=== PATIENT | female | born 1970 | race Caucasian/White ===

== ENCOUNTER 2018-01-20 14:39 | Inpatient (IN) | payer BC ==
[~2018-01-20] VITALS: Ht 160 cm; Wt 69.7 kg
[2018-01-20] MEDS ORDERED: TRAZ-219 PO (14:45)
[2018-01-20] MEDS ORDERED: FLUO-191 PO (14:45)
[2018-01-20] MEDS ORDERED: BUPR100T5 PO (14:45)
[2018-01-20] MEDS ORDERED: MetroNIDAZOLE 500 MG/NACL 100 ML IV ONE (19:00)
[2018-01-20] MEDS ORDERED: MORPHINE SULFATE 2 MG/ML SYRINGE IVP ONE (19:00)
[2018-01-20] MEDS ORDERED: KETOROLAC TROMETHAMINE 30 MG/ML VIAL IVP ONE (19:00)
[2018-01-20] MEDS ORDERED: CeFAZolin 1 GM/DEXTROSE 50 ML IV ONE (19:00)
[2018-01-20] MEDS ORDERED: ONDANSETRON HCL 4 MG/2 ML VIAL IVP ONE ×2 (19:00→22:15)
[2018-01-20 19:22] LABS: BASOPHILS % (AUTO) 0.2 % (0.0-2.0); EOSINOPHILS % (AUTO) 1.1 % (1.0-6.0); HEMATOCRIT 36.2 % (36-46); LYMPHOCYTES # (AUTO) 2.3 K/uL (1.0-4.8); LYMPHOCYTES % (AUTO) 20.9 % (22.0-44.0); MEAN CORPUSCULAR HEMOGLOBIN 27.9 pg (26.0-34.0); MEAN CORPUSCULAR HGB CONC 33.1 G/dL (31.0-37.0); MEAN CORPUSCULAR VOLUME 84 fL (80-100); MONOCYTES # (AUTO) 0.5 K/uL (0.1-1.0); MONOCYTES % (AUTO) 4.5 % (2.0-9.0); NEUTROPHILS # (AUTO) 8.2 K/uL (1.8-7.7); NEUTROPHILS % (AUTO) 73.3 % (40.0-70.0); PLATELET COUNT (AUTO) 381 K/uL (150-450); RED CELL DISTRIBUTION WIDTH 15.6 % (11.5-14.5)
[2018-01-20 19:33] LABS: ANION GAP 8 mmol/L (8-16); CARBON DIOXIDE 27 mmol/L (22-29); CHLORIDE 102 mmol/L (98-107); CREATININE 0.76 mg/dL (0.60-1.30); GLOMERULAR FILTR. RATE CALC > 60 mL/min (>60); GLUCOSE,RANDOM 87 mg/dL (70-110); POTASSIUM 3.3 mmol/L (3.5-5.1); SODIUM SERUM 137 mmol/L (136-145); UREA NITROGEN, BLOOD 8 mg/dL (7-18)
[2018-01-20 19:40] LABS: ALANINE AMINOTRANSFERASE 20 U/L (12-78); ALBUMIN 3.8 g/dL (3.4-5.0); ALKALINE PHOSPHATASE 105 U/L (46-116); ASPARTATE AMINOTRANSFERASE 21 U/L (15-37); BILIRUBIN,TOTAL 0.4 mg/dL (0.1-1.0); TOTAL PROTEIN, SERUM 8.3 g/dL (6.4-8.2)
[2018-01-20 19:43] LABS: LACTIC ACID 0.5 mmol/L (0.4-2.0)
[2018-01-20] MEDS ORDERED: SODIUM CHLORIDE 0.9% 100 ML ONE (20:29)
[2018-01-20] MEDS ORDERED: IOVERSOL 320 MG/ML 100 ML VIAL ONE (20:29)
[2018-01-20] MEDS ORDERED: MethylPREDNISolone SOD SUCC 125 MG/2 ML VIAL IVP ONE (22:15)
[2018-01-20] MEDS ORDERED: ACETAMINOPHEN 325 MG TABLET PO PRN (22:15)
[2018-01-20] MEDS ORDERED: 0.9% SODIUM CHLORIDE 10 ML SYRINGE IVP PRN (22:15)
[2018-01-20] MEDS ORDERED: ONDANSETRON HCL 4 MG/2 ML VIAL IVP PRN ×2 (22:15→23:00)
[2018-01-20] MEDS ORDERED: POTASSIUM CHLORIDE 20 MEQ ER TABLET PO ONE (22:15)
[2018-01-20] MEDS ORDERED: MORPHINE SULFATE 4 MG/ML SYRINGE IVP ONE (22:15)
[2018-01-20] MEDS ORDERED: BISACODYL 10 MG RECTAL RECTAL SUPPOSITORY PR PRN (23:00)
[2018-01-20] MEDS ORDERED: *CLINICAL-LEVOFLOXACIN IVPB DOSING CLINICAL ONE (23:00)
[2018-01-20] MEDS ORDERED: ZOLPIDEM TARTRATE 5 MG TABLET PO PRN (23:00)
[2018-01-20] MEDS ORDERED: MAGNESIUM HYDROXIDE SUSPENSION 30 ML UDCUP PO PRN (23:00)
[2018-01-20] MEDS ORDERED: SODIUM CHLORIDE 0.9% 250 ML IV ONE (23:17)
[2018-01-20 23:21] VITALS: BP 155/79
[2018-01-20] MEDS: HEPARIN SODIUM,PORCINE 5,000 UNITS/ML VIAL SQ SCH (23:49)
[2018-01-20] MEDS: CLINDAMYCIN 600 MG/D5% WATER 50 ML IV SCH (23:49)
[2018-01-21] MEDS: LEVOFLOXACIN 500 MG/D5% WATER 100 ML IV SCH (02:02)
[2018-01-21 03:25] VITALS: BP 128/74
[2018-01-21] MEDS: CLINDAMYCIN 600 MG/D5% WATER 50 ML IV SCH ×4 (05:39→23:04)
[2018-01-21 06:15] LABS: BASOPHILS % (AUTO) 0.1 % (0.0-2.0); EOSINOPHILS % (AUTO) 0 % (1.0-6.0); HEMATOCRIT 34.6 % (36-46); HEMOGLOBIN 11.7 g/dL (12.0-16.0); LYMPHOCYTES # (AUTO) 0.6 K/uL (1.0-4.8); LYMPHOCYTES % (AUTO) 7.5 % (22.0-44.0); MEAN CORPUSCULAR HEMOGLOBIN 28.1 pg (26.0-34.0); MEAN CORPUSCULAR HGB CONC 33.8 G/dL (31.0-37.0); MEAN CORPUSCULAR VOLUME 83 fL (80-100); MONOCYTES # (AUTO) 0.1 K/uL (0.1-1.0); MONOCYTES % (AUTO) 0.7 % (2.0-9.0); NEUTROPHILS # (AUTO) 7.2 K/uL (1.8-7.7); PLATELET COUNT (AUTO) 357 K/uL (150-450); RED BLOOD CELL COUNT(AUTO) 4.16 MIL/uL (4.00-5.20); RED CELL DISTRIBUTION WIDTH 15.6 % (11.5-14.5)
[2018-01-21 06:26] LABS: ANION GAP 7 mmol/L (8-16); CALCIUM, TOTAL 8.9 mg/dL (8.8-10.5); CARBON DIOXIDE 26 mmol/L (22-29); CHLORIDE 102 mmol/L (98-107); GLOMERULAR FILTR. RATE CALC > 60 mL/min (>60); GLUCOSE,RANDOM 173 mg/dL (70-110); NEUTROPHILS % (AUTO) 91.7 % (40.0-70.0); POTASSIUM 4.3 mmol/L (3.5-5.1); SODIUM SERUM 135 mmol/L (136-145); UREA NITROGEN, BLOOD 7 mg/dL (7-18)
[2018-01-21 07:37] VITALS: BP 127/70
[2018-01-21] MEDS: DOCUSATE SODIUM 100 MG CAPSULE PO SCH ×2 (09:46→19:48)
[2018-01-21] MEDS: FLUoxetine HCL 20 MG CAPSULE PO SCH (09:46)
[2018-01-21] MEDS: PANTOPRAZOLE SODIUM 40 MG DR TABLET PO SCH (09:47)
[2018-01-21] MEDS: BuPROPion HCL 100 MG SR TABLET PO SCH (09:47)
[2018-01-21] MEDS: HEPARIN SODIUM,PORCINE 5,000 UNITS/ML VIAL SQ SCH ×3 (09:47→23:04)
[2018-01-21] MEDS: ACETAMINOPHEN 325 MG TABLET PO PRN ×2 (09:56→19:48)
[2018-01-21 11:52] VITALS: BP 129/78
[2018-01-21 15:30] VITALS: BP 148/78
[2018-01-21 20:00] VITALS: BP 142/82
[2018-01-21] MEDS ORDERED: TraZODone HCL 50 MG TABLET PO SCH (21:00)
[2018-01-21] MEDS: HYDROCODONE/ACETAMINOPHEN 5-325 MG TABLET PO PRN (23:04)
[2018-01-22 00:10] VITALS: BP 110/54
[2018-01-22] MEDS: LEVOFLOXACIN 500 MG/D5% WATER 100 ML IV SCH (01:35)
[2018-01-22 04:13] VITALS: BP 134/69
[2018-01-22] MEDS: CLINDAMYCIN 600 MG/D5% WATER 50 ML IV SCH ×2 (05:39→12:25)
[2018-01-22] MEDS: HYDROCODONE/ACETAMINOPHEN 5-325 MG TABLET PO PRN (05:39)
[2018-01-22 06:15] LABS: BASOPHILS % (AUTO) 0.2 % (0.0-2.0); EOSINOPHILS % (AUTO) 0.1 % (1.0-6.0); HEMATOCRIT 33.5 % (36-46); HEMOGLOBIN 11.1 g/dL (12.0-16.0); LYMPHOCYTES # (AUTO) 2.8 K/uL (1.0-4.8); LYMPHOCYTES % (AUTO) 23.3 % (22.0-44.0); MEAN CORPUSCULAR VOLUME 85 fL (80-100); MONOCYTES # (AUTO) 0.7 K/uL (0.1-1.0); MONOCYTES % (AUTO) 5.8 % (2.0-9.0); NEUTROPHILS # (AUTO) 8.6 K/uL (1.8-7.7); NEUTROPHILS % (AUTO) 70.6 % (40.0-70.0); PLATELET COUNT (AUTO) 334 K/uL (150-450); RED BLOOD CELL COUNT(AUTO) 3.95 MIL/uL (4.00-5.20); RED CELL DISTRIBUTION WIDTH 16.4 % (11.5-14.5)
[2018-01-22 06:22] LABS: HEMOGLOBIN A1C 4.8 % (4.5-6.2)
[2018-01-22 06:36] LABS: ANION GAP 9 mmol/L (8-16); CALCIUM, TOTAL 8.8 mg/dL (8.8-10.5); CARBON DIOXIDE 29 mmol/L (22-29); CHLORIDE 103 mmol/L (98-107); CHOL/HDL RATIO 2.3 (3.9-5.7); CHOLESTEROL 130 mg/dL (131-200); CREATININE 0.79 mg/dL (0.60-1.30); GLOMERULAR FILTR. RATE CALC > 60 mL/min (>60); GLUCOSE,RANDOM 98 mg/dL (70-110); HDL CHOLESTEROL 56 mg/dL (40-60); POTASSIUM 3.6 mmol/L (3.5-5.1); SODIUM SERUM 141 mmol/L (136-145); UREA NITROGEN, BLOOD 12 mg/dL (7-18)
[2018-01-22 06:52] LABS: LDL CHOL (CALC.) 61 mg/dL (0-130); TRIGLYCERIDES 64 mg/dL (15-150)
[2018-01-22] MEDS: MORPHINE SULFATE 2 MG/ML SYRINGE IVP PRN ×2 (07:51→11:41)
[2018-01-22] MEDS: DOCUSATE SODIUM 100 MG CAPSULE PO SCH (07:55)
[2018-01-22] MEDS: HEPARIN SODIUM,PORCINE 5,000 UNITS/ML VIAL SQ SCH ×3 (07:55→16:16)
[2018-01-22] MEDS: BuPROPion HCL 100 MG SR TABLET PO SCH (07:56)
[2018-01-22] MEDS: PANTOPRAZOLE SODIUM 40 MG DR TABLET PO SCH (07:57)
[2018-01-22] MEDS: FLUoxetine HCL 20 MG CAPSULE PO SCH (07:57)
[2018-01-22 08:04] VITALS: BP 148/94
[2018-01-22 11:53] VITALS: BP 160/104
[2018-01-22] MEDS ORDERED: AmLODIPine BESYLATE 5 MG TABLET PO SCH (15:00)
[2018-01-22 15:50] VITALS: BP 165/93
[2018-01-22] MEDS ORDERED: MetroNIDAZOLE 500 MG TABLET PO SCH (17:45)
[2018-01-22] MEDS ORDERED: AMPICILLIN SODIUM/SULBACTAM NA 3 GM in SODIUM CHLORIDE 0.9% 100 ML IV SCH (18:00)
[2018-01-22] MEDS ORDERED: CefTRIAXone SODIUM 2 GM in DEXTROSE 5%-WATER 20 ML IV SCH (18:00)
[2018-01-22 19:15] VITALS: BP 158/82
[2018-01-23] MEDS ORDERED: LEVOFLOXACIN 750 MG/D5% WATER 150 ML IV SCH (02:00)
== END 2018-01-22 20:00 | disposition short-term general hospital (02) | DRG 872 ==
LOC: EMS 14:43 → 4E 21:30
PROVIDERS: ADMIT Internal Medicine; ATTEND Internal Medicine
DX: A41.9 Sepsis, unspecified organism (principal); L02.01 Cutaneous abscess of face; L03.211 Cellulitis of face; M86.8X8 Other osteomyelitis, other site; E87.6 Hypokalemia; F43.10 Post-traumatic stress disorder, unspecified; I10 Essential (primary) hypertension; K04.7 Periapical abscess without sinus; Z79.899 Other long term (current) drug therapy
CPT/HCPCS: 70491; 83036; 83605; 87040; 96365; 96367; 96375; 96376; 99285; J0295; J0690; J0696; J1644; J1885; J1956; J2270; J2405; J2930; J3490; J7050; J7060